=== PATIENT | female | born 2005 | race Caucasian/White ===

== ENCOUNTER 2023-11-15 01:48 | Inpatient (IN) ==
--- OUTSIDE RECORDS SUMMARY | 2023-11-15 02:10 | External Medical Summary | Summary of Care ---
Author Name Unknown Organization [facility] Address [address] [facility] [place] [address] Phone [phone] Care Team Providers Care Membership Sales Advisor Name Role Phone Stanley Lee MD Primary Care Prov ider Reason for Visit * Reason Onset Date Comments Medication Refill 11/13/2023 Sertraline Encounter Details Date Type Department Care Team (Late st Contact Info) Description 11/13/2023 Telephone [facility] [address] [place] [address] Stanley Lee MD [address] [place] [id number] Medication Refill (Sertraline ) Allergies No known active allergiesdocumented as of this encounter (statuses as of 11/13/2023) Medications Medication Sig Dispensed Refills Start Date End Date Status Ventolin HFA 108 (90 Base) MCG/ACT Inhalation Aerosol SolutionIndicatio ns:DILL (dyspnea on exertion) Inhale 2 Puffs by mouth 4 times a day as needed for Shortness of Breath or Other (chest discomfort/tigh tness). 18 g 5 01/03/2023 Active Plus 27-1 MG Oral TabletIndications :Attempting to conceive Take 1 Tablet by mouth daily. 90 Tablet 3 02/27/2023 Active Ondansetron HCl 4 MG Oral Tablet (Zofran)Indicatio ns:Nausea Take 1 Tablet by mouth every 8 hours as needed for Nausea or Vomiting. 20 Tablet 1 07/19/2023 Active Pantoprazole Sodium 20 MG Oral Tablet Delayed Release (Protonix) Take 1 Tablet by mouth in the morning. 90 Tablet 0 10/19/2023 Active Sertraline HCl 100 MG Oral Tablet (Zoloft) Take 1 Tablet by mouth in the morning. 90 Tablet 1 11/13/2023 Active Sertraline HCl 100 MG Oral Tablet (Zoloft) Take 1 Tablet by mouth in the morning. 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 without prior episode 03/18/2018 Acne vulgaris 04/20/2015 Estimated Date of Delivery Comme nts Yes 12/06/2023 documented as of this encounter (statuses as of 11/13/2023) Resolved Problems Problem Noted Date Diagnosed Date Resolved Date IUD check up 12/18/2019 12/13/2022 Missed 12/05/2019 12/18/2019 Cardiac dysrhythmia, unspecified 12/30/2009 03/18/2018 documented as of this encounter (statuses as of 11/13/2023) Immunizations Name Administration Dates Next Due DT - Diptheria/Tetanus (PEDS) 09/03/2008 ,02/23/2005,03/07/2004,12/24,2003 HIB PRP-OMP, 3 dose (Pedvax) 09/03/2008, 09/01/2004,2003,10/14 HPV Vaccine, 9-Valent 08/02/2020,02/04/2020,07/10 Hepatitis B, 0-19 yrs 09/01/2004,2003,10/2003 IPV - Polio Virus Vaccine (Inact) 2008,11/23/2004,2003,10/14 MMR - Measles/Mumps/Rubella Vaccine 09/03/2008,0 09/01/2004 Meningococcal Conjugate Vacc ine (Menactra/Menveo) 02/28/2017 Meningococcal MCV4O Conjugat e Vaccine (Menveo) 02/04/2020 Pneumococcal Conjugate Vacc, 13 Valent (Prevnar) 09/01/2004,03/07/2004,2003,10/08 TDAP (age 10 and older)(Boostrix) 06/23/2015, Varicella Vaccine (Chicken Pox) 03/22/2009,09/01 documented as of this encounter Social History Tobacco Use Types Packs/Day Years Used Date Smoking Tobacco: Never Smokeless Tobacco: Never Alcohol Use Standard Drinks/Week Comments No 0 (1 standard drink = 0.6 oz pur e alcohol) PHQ-2 Answer Date Recorded PHQ Adult Total Score 2 01/31/2023 Hunger Vital Sign Answer Date Recorded Within the past 12 months, y ou worried that your food would run out before you got the money to buy more. Never true 12/14/19 23 Within the past 12 months, t he food you bought just didn't last and you didn't have money to get more. Never true 12/13/2022 Estimated Date of Delivery Comme nts Yes 12/06/2023 Sex and Gender Information Value Date Recorded Sex Assigned at Female 10/30/2021 12:52 PM EDT Gender Identity Female 10/30/2021 12:52 PM EDT Sexual Orientation Straight 10/30/2021 12 :52 PM EDT Job Start Date Occupation Industry Not on file Not on file Not on file documented as of this encounter Miscellaneous Notes * Telephone Encounter - Janae Vidal LPN - 11/13/2023 1:06 PM EDT Fax received from [facility] pharmacy [place] requesting a 90 day supply of Sertraline 100 mg 1QDAM. Last appt: 10/19/2023 (in office), Visit date not found (telemedicine) Next appt: 11/22/2023 documented in this encounter Plan of Treatment Upcoming Encounters Date Type Department Care Team (Late st Contact Info) Description 11/22/2023 12:00 [place] [address] Stanley Lee MD [address] [place] [address] 04/22/2024 9:00 AM EDT Office Visit [facility] [place] [place] [address] [place] [address] Michelle Vazquez PA-C [address] [place] [address] Health Maintenance Due Date Last Done Comments Hepatitis C Screening 2021 Yearly Wellness Visit 01/18/2023 01/18/2022, 020 COVID-19 Vaccine (2022-2 4 season) 2023 Gonorrhea / Chlamydia Screen 08/04/2023, 02/15/2022, 03/07/2021, Additional history exists Influenza Vaccine (FLU shot) (Season Ended) 2024 DTaP,Tdap,and Td Vaccines (7 - Td or Tdap) 06/23/2025 06/23/2015, 03/22/2009, 09/03/2008, Additional history exists Hepatitis B Completed 09/01/2004, 02/2004, 2003 Pneumococcal Vaccine: Pediat rics (0 to 5 Years) and At-Risk Patients (6 to 64 Years) Completed 09/01/2004, 03/07/2004, 2003, Additional history exists MENINGOCOCCAL (MENACTRA/MENVEO) Completed , 02/28/2017 GARDASIL-HPV IMMUNIZATION SERIES Completed 08/02/2020, 02/04/2020, 07/31/2019 documented as of this encounter Medical Devices Implanted Type Area Certified Personal Finance Counselor Device Identifier Shelf Expiration Date Model / Serial / Lot Kyleena 19.5 Mg Implanted:Qty: 1 on 12/10/2019 by Tevin Parker MD at OR [facility] N/A: Vagina 09/05/2021 [facility] [id number] documented as of this encounter Advance Directives Latest Code Status on File Code Status Date Activated Date Inactivated Comments Full Code 12/10/2019 4:17 PM 12/10/2019 9:18 PM This or rosa m reflects the patients wishes and were consensually agreed upon. Care Teams Membership Sales Advisor Relationship Specialty Start Date End Date Stanley Lee MD [address] [place] [address] [phone] PCP - General Family Medicine 05/30/21 documented as of this encounter
[2023-11-15] MEDS ORDERED: OXYTOCIN 30 UNITS/NSS 30 UNITS/500 ML BAG IV PRN ×2 (02:47→09:34)
[2023-11-15] MEDS ORDERED: LIDOCAINE 1% LOCAL 20 ML VIAL INFIL PRN (02:47)
[2023-11-15] MEDS ORDERED: ALBUTEROL HFA 8 GM INHALER INH PRN (02:50)
[2023-11-15] MEDS ORDERED: ACETAMINOPHEN 500 MG TAB PO PRN (03:09)
--- NOTE | 2023-11-15 03:10 | History & Physical Report ---
Date of Service November 15, 2023 Assessment & Plan (1) Supervision of normal intrauterine in primigravida: Plan: IUP at 37 weeks with documented SPROM and now spontaneous on set of contractions will check Preeclampsia labs-tylenol for her headache PRN. Headache may also be because of anemia for which she has received one iron infusion and was due for another soon epidural when requested anticipate vaginal Admission and Anticipated Discharge Date Admission Date: November 15, 2023 History of Present Illness Primary Care Provider: Stanley Chou MD Patient is a 18 yo female EDC 12/06/23 who presents at 37 weeks with SPROM for clear fluid at midnight. now frederick spontaneously. GBS-negative complicated by gestational proteinuria, iron deficiency anemia, POTS syndrome and a headache over her right eye for the last several weeks. no visual changes and Tylenol helps the headache. Her BP has been elevated the last 2 visits in the office but became normotensive after sitting for 5 minutes. Allergies Allergy/AdvReac Type Severity Reaction Status Date / Time No Known Allergies Allergy Verified 11/15/23 02:22 Home Medications Medication Instructions Recorded Confirmed Type albuterol sulfate 90 mcg/actuation 2 puff inhalation QID PRN 04/14/23 11/15/23 History aerosol inhaler SOB,CHEST DISCMFORT/TIGHTNESS vitamin with calcium 1 tab PO DAILY 04/14/23 11/15/23 History no.72-iron 27 mg-folic acid 1 mg tablet pantoprazole 20 mg tablet,delayed 20 mg PO DAILY 10/27/23 11/15/23 History release (Protonix) sertraline 50 mg tablet 100 mg PO QAM 10/27/23 11/15/23 History iron sucrose 100 mg iron/5 mL 300 mg (15 mL) IV DAILY 1 dose 11/05/23 11/15/23 Rx intravenous solution (Venofer) Patient History Medical History Seasonal allergies Acid reflux Anxiety POTS (postural orthostatic tachycardia syndrome) Varicella vaccination Surgical History S/P wisdom tooth extraction S/P dilatation and curettage Family History Grandmother (Maternal) Breast cancer Mother Anemia Asthma Sister Anemia Asthma Ovarian cyst Father Diabetes Gallbladder disease Hypertension Grandmother (Paternal) Heart murmur Denies family history of Ovarian cancer Colorectal cancer Social History Smoking Status: Never smoker Do You Dip or Chew Tobacco: No; Hx Alcohol Use: No Hx Substance Use: No Preferred Language: Marshallese Communication Ability: Effective Rehabilitation Technician Required: No Beliefs That Will Affect Care: None marital status: Single marital status details: Hailey Glez (20) [phone] Current Living Situation: Parent Current Living Situation Comment: momWilton Dyer current occupational status: employed current occupation: [employer] Other Information That Helps Us Care for You: No Assistive Devices: None Review of Systems All systems reviewed & are unremarkable except as noted in HPI & below Physical Exam Constitutional: WD/WN, vitals as above Psychiatric: A+Ox3, euthymic affect Genitourinary: OB Exam Abdomen: + vertex, + estimated weight (6-7 pounds) and + regular contractions Manual OB Exam: + cervical dilation 2 cm, + cervical effacement 100%, + station -2 and + amniotic fluid (grossly ruptured) clear OB Exam Monitor Tracing: + external FHT monitor used, + external uterine monitor used, + category I and + normal FHT variability Results & Data Vital Signs (Past 12 Hours) Vital Signs Temp Pulse Resp BP 11/15/23 02:20 18 11/15/23 02:20 98.6 F 18 11/15/23 02:12 112 H 145/89 H Code Status & VTE Plan VTE Prophylaxis Plan VTE Prophylaxis will be ordered: No Coding Level of Care Code None Diagnoses Encounter for supervision of normal first in third trimester Z34.03 Trimester: third trimester (1) Supervision of normal intrauterine in primigravida Trimester: third trimester Qualified Code(s): Z34.03 - Encounter for super vision of normal first , third trimester
[2023-11-15 03:44] LABS: Hematocrit (blood only) 28.4 % (37.0-47.0); Hemoglobin 8.8 g/dl (12.0-16.0); Mean Corpuscular Hemoglobin 23.3 pg (25.0-34.0); Mean Corpuscular Volume 75.3 fL (80.0-100.0); Nucleated RBC # (auto) 0.05 K/uL (0.00-0.12); Nucleated RBC % (auto) 0.5 %; Platelet Count 178 K/uL (130-400); RDW Coefficient of Variation 17.4 % (11.5-14.5); RDW Standard Deviation 39.9 fL (36.4-46.3); Red Blood Count 3.77 M/uL (4.20-5.40); White Blood Count 9.16 K/ul (4.8-10.8)
[2023-11-15 03:53] LABS: Albumin Globulin Ratio 1.2 (0.9-2); Albumin Level 3.5 gm/dl (3.4-5.0); BUN Creatinine Ratio 14.7 (10-20); Bilirubin,Total 0.6 mg/dl (0.2-1.0); Creatinine Clr Calc Pharmacy 144.7 ml/min; Est GFR (African American) 145.9 ml/min; Est GFR (Non-African American) 125.9 ml/min; Globulin 2.9 gm/dl (2.5-4.0); Potassium 4.2 mmol/L (3.5-5.1); Total Protein 6.4 gm/dl (6.0-8.3)
[2023-11-15] MEDS: LACTATED RINGER'S 1,000 ML IV PRN (04:39)
[2023-11-15] MEDS ORDERED: SODIUM CHLORIDE 0.9% 250 ML IV PRN (04:52)
[2023-11-15] MEDS ORDERED: BUPIVACAINE 0.25% PF 30 ML VIAL EPI PRN (04:53)
[2023-11-15] MEDS ORDERED: fentANYL 2 MCG/ML BUPIVacaine 0.125%-NSS 100ML BAG EPI PRN (04:53)
[2023-11-15] MEDS ORDERED: LIDOCAINE 2%/EPINEPHRINE 1:200,000 20 ML PF EPI STA (04:53)
[2023-11-15] MEDS ORDERED: NALBUPHINE HCL 5 MG in SYRINGE 0 ML IV PRN (04:53)
[2023-11-15] MEDS ORDERED: fentaNYL citrate PF 100 MCG/2 ML VIAL EPI PRN (04:53)
[2023-11-15] MEDS ORDERED: SODIUM CHLORIDE 0.9% PF INJ 10 ML VIAL EPI PRN (04:53)
[2023-11-15] MEDS ORDERED: diphenhydrAMINE 50 MG/ML VIAL IV PRN (04:53)
[2023-11-15] MEDS ORDERED: ROPIVACAINE 0.5% PF 5 MG/ML 20 ML VIAL EPI PRN (04:53)
[2023-11-15] MEDS ORDERED: ePHEDrine sulfate 50 MG/ML AMP IV PRN (04:53)
[2023-11-15] MEDS ORDERED: BUPIVACAINE 0.25% PF 30 ML VIAL EPI STA (04:53)
[2023-11-15] MEDS ORDERED: ONDANSETRON INJ 2 MG/ML 2 ML VIAL IV PRN (04:53)
[2023-11-15] MEDS ORDERED: NALOXONE HCL 1 MG in SODIUM CHLORIDE 0.9% 1,000 ML IV PRN (04:53)
[2023-11-15] MEDS ORDERED: SODIUM CHLORIDE 0.9% PF INJ 10 ML VIAL EPI STA (04:53)
[2023-11-15] MEDS ORDERED: fentaNYL citrate PF 100 MCG/2 ML VIAL EPI STA (04:53)
[2023-11-15] MEDS ORDERED: NALOXONE HCL 0.4 MG/1 ML VIAL/CARP IV PRN (04:53)
[2023-11-15] MEDS ORDERED: LIDOCAINE 2% MPF LOCAL 5 ML VIAL EPI PRN (04:53)
--- NOTE | 2023-11-15 05:18 | Anesthesiology Consultation ---
Date of Service November 15, 2023 Assessment & Plan (1) Encounter for pre-operative examination: Chart Review Chart Review: Patient NOT seen in Pre Admission Testing and Acceptable Risk for Labor Epidural Consults Requested none History Height/Weight Height: 5 ft 4 in Weight: 91.626 kg Allergies Allergy/AdvReac Type Severity Reaction Status Date / Time No Known Allergies Allergy Verified 11/15/23 02:22 Medications Home Medications Medication Instructions Recorded Confirmed Last Taken albuterol sulfate 90 mcg/actuation 2 puff inhalation QID PRN 04/14/23 11/15/23 Unknown aerosol inhaler SOB,CHEST DISCMFORT/TIGHTNESS vitamin with calcium 1 tab PO DAILY 04/14/23 11/15/23 11/14/23 no.72-iron 27 mg-folic acid 1 mg tablet pantoprazole 20 mg tablet,delayed 20 mg PO DAILY 10/27/23 11/15/23 11/14/23 20:00 release (Protonix) sertraline 50 mg tablet 100 mg PO QAM 10/27/23 11/15/23 11/14/23 20:00 iron sucrose 100 mg iron/5 mL 300 mg (15 mL) IV DAILY 1 dose 11/05/23 11/15/23 11/09/23 intravenous solution (Venofer) Active Medications Generic Name Dose Route Start Last Admin Trade Name Freq PRN Reason Stop Dose Admin Lactated Ringer's 1,000 mls @ 125 mls/hr 11/15/23 02:47 11/15/23 04:39 Lr IV 11/17/23 02:46 999 mls/hr .Q8H PRN Administration L&D Protocol Protocol Past Medical History Medical History (Updated 11/15/23 @ 05:18 by Jackson Casas MD) Encounter for pre-operative examination Seasonal allergies Acid reflux Anxiety POTS (postural orthostatic tachycardia syndrome) Varicella vaccination Exercise / Class Metabolic Activity II 4-5 Yardwork/Stairs/Walk up hill Past Family History Family History Grandmother (Maternal) Breast cancer Mother Anemia Asthma Sister Anemia Asthma Ovarian cyst Father Diabetes Gallbladder disease Hypertension Grandmother (Paternal) Heart murmur Denies family history of Ovarian cancer Colorectal cancer Past Surgical History Surgical History S/P wisdom tooth extraction S/P dilatation and curettage Past Anesthesia History No Hx of Anesthesia Complications and No Family Hx of Anesthesia Complications History of PONV No Hx of PONV and No Hx of Motion Sickness Social History Smoking Status: Never smoker Do You Dip or Chew Tobacco: No Hx Alcohol Use: No Hx Substance Use: No substance use type: does not use Physical Exam Vital Signs Last Vital Signs Temp 36.7 C 11/15/23 04:30 Pulse 101 H 11/15/23 05:14 Resp 18 11/15/23 04:30 BP 133/86 11/15/23 05:14 Pulse Ox 99 11/15/23 05:12 Testing Laboratory Results 11/15/23 03:12 11/15/23 03:12
[2023-11-15] MEDS: BUPIVACAINE 0.25% PF 30 ML VIAL ONE (05:19)
[2023-11-15] MEDS: fentaNYL citrate PF 100 MCG/2 ML VIAL ONE (05:19)
[2023-11-15] MEDS: LIDOCAINE 2%/EPINEPHRINE 1:200,000 20 ML PF ONE (05:19)
[2023-11-15] MEDS: fentANYL 2 MCG/ML BUPIVacaine 0.125%-NSS 100ML BAG ONE (05:20)
[2023-11-15] MEDS: ePHEDrine sulfate 50 MG/ML AMP ONE (05:52)
[2023-11-15] MEDS: SODIUM CHLORIDE 0.9% PF INJ 10 ML VIAL ONE (05:52)
[2023-11-15] MEDS: OXYTOCIN 30 UNITS/NSS 30 UNITS/500 ML BAG IV PRN (09:09)
[2023-11-15] MEDS ORDERED: HYDROCORTISONE ACETATE 25 MG SUPP PR PRN (09:34)
[2023-11-15] MEDS ORDERED: bisacodyL 10 MG SUPP PR PRN (09:34)
[2023-11-15] MEDS ORDERED: BENZOCAINE 20% SPRY 85 APPLN/85 GM CAN EXT PRN (09:34)
[2023-11-15] MEDS ORDERED: Nursing to Pharmacy Communication SCH (10:00)
[2023-11-15] MEDS: PANTOprazole 40 MG TAB PO SCH ×2 (10:25→20:33)
[2023-11-15] MEDS: SERTRALINE HCL 100 MG TABLET PO SCH ×2 (10:25→20:33)
[2023-11-15] MEDS: DIPHTHER/TETAN/PERTUS Vaccine (Tdap, Adol/Adult) 0.5mL IM ONE (10:26)
--- NOTE | 2023-11-15 11:08 | Anesthesia Procedure Note ---
Date of Service November 15, 2023 Anesthesia Post Epidural Note Vital Signs Vital Signs: Temp Pulse Resp BP Pulse Ox O2 Del Method 36.8 C 85 18 120/73 96 Room Air 11/15/23 07:02 11/15/23 11:03 11/15/23 10:15 11/15/23 11:03 11/15/23 11:02 11/15/23 09:45 Pain Intensity Bilateral Lower Abdomen: Pain Intensity: 5 Notes Mental Status: alert / awake / arousable and participated in evaluation Nausea / Vomiting: adequately controlled Pain: adequately controlled Airway Patency, RR, SpO2: stable & adequate BP & HR: stable & adequate Hydration State: stable & adequate Neuraxial Anesthesia: was administered and sensory block is resolving Anesthetic Complications: no major complications apparent Epidural: Removed without complications and With tip intact
--- NOTE | 2023-11-15 13:57 | Delivery Summary ---
Vaginal Delivery Summary Date of Service November 15, 2023 Vaginal Delivery Summary Progressed to 10 cm dilated 100% effaced and +3 station pushed over intact perineum with epidural anesthesia and delivered a viable with weight and Apgars pending. Have delivered without difficulty followed by shoulders and body. was noted be vigorous upon delivery and a 1 minute delayed cord clamping was initiated. Cord was double clamped and cut. Cord blood obtained and attention was turned to deliver the placenta was delivered intact three- vessel cord gentle cord traction. There is noted to be no lacerations on inspection of the perineum, vagina and cervix. Sponge and instrument counts were correct at the completion of the case. Both mother and baby stable in the immediate post delivery period. No complications noted and blood loss per QBL. [facility] Vaginal Delivery Charge Delivery Type Details:
[2023-11-15] MEDS: IBUPROFEN 600 MG TAB PO PRN (16:23)
[2023-11-15] MEDS: ACETAMINOPHEN 325 MG TAB PO PRN (16:24)
[2023-11-15] MEDS: DOCUSATE SODIUM 100 MG CAP PO SCH (20:33)
[2023-11-16 04:03] VITALS: TEMP 98.1
[2023-11-16 06:15] LABS: Hematocrit (blood only) 28.6 % (37.0-47.0); Hemoglobin 8.8 g/dl (12.0-16.0); Mean Corpuscular Hemoglobin 23.7 pg (25.0-34.0); Mean Corpuscular Hgb Conc 30.8 g/dL (32.0-36.0); Mean Corpuscular Volume 76.9 fL (80.0-100.0); Mean Platelet Volume 12.4 fL (9.4-12.4); Nucleated RBC # (auto) 0.03 K/uL (0.00-0.12); Nucleated RBC % (auto) 0.3 %; Platelet Count 141 K/uL (130-400); RDW Coefficient of Variation 18.5 % (11.5-14.5); RDW Standard Deviation 41.1 fL (36.4-46.3); Red Blood Count 3.72 M/uL (4.20-5.40); White Blood Count 9.41 K/ul (4.8-10.8)
--- NOTE | 2023-11-16 06:43 | Obstetrical Progress Note ---
Date of Service <Aniyah Streeter DO - Last Filed: 11/16/23 06:44> November 16, 2023 Assessment & Plan <Aniyah Streeter DO - Last Filed: 11/16/23 06:44> (1) care following vaginal delivery: Plan Feels well today. Eating well, voiding well, ambulating well. Pain well controlled with ibuprofen +/- tylenol. Routine care; OOB, ambulation, continue regular diet. Anticipate discharge 24-48 hours after , today or tomorrow. After discharge will have 6 week follow-up with Dr. To. <Faustino To MD - Last Filed: 11/16/23 07:38> (1) care following vaginal delivery: Subjective <Aniyah Streeter DO - Last Filed: 11/16/23 06:44> Pt is a 18 y/o female who is PPD#1 following . Today, pt states she is overall feeling well. No questions or complaints at this point in time. She states that cramps are mild and bleeding has improved. Does notice cramps are worse with . is going okay. Tolerating intake, ambulating, and voiding without issue. Constitutional: no fever, no chills or no sweats Respiratory: no dyspnea Cardiovascular: no chest pain or no palpitations Breast: no breast pain Genitourinary (female): no dysuria Neurologic: no headache(s) no changes in vision, no headaches Physical Exam <Aniyah Streeter DO - Last Filed: 11/16/23 06:44> General: Alert, oriented. No acute distress. Cardiac: Regular rate and rhythm, no murmurs, rubs, or gallops. Respiratory: Clear to auscultation bilaterally, no wheezes/rales/rhonchi. No increased work of breathing. Symmetrical chest rise. No respiratory distress. Abdomen: Soft, nontender, nondistended. Bowel sounds present. Uterus: Uterine fundus firm, palpable just below the umbilicus. Lower extremities: No lower extremity edema or swelling. No deep calf pain. Results & Data <Aniyah Streeter DO - Last Filed: 11/16/23 06:44> Vital Signs (Past 12 Hours) Vital Signs Temp Pulse Resp BP Pulse Ox O2 Del Method 11/16/23 04:03 36.7 C 73 18 105/69 98 Room Air 11/15/23 23:09 36.9 C 83 18 131/85 97 Room Air 11/15/23 19:23 36.8 C 83 18 135/80 Supervising Physician <Faustino To MD - Last Filed: 11/16/23 07:38> Co-Signing Physician Notes Patient seen with resident and agree with the above findings and plan. Stable for discharge Resident Activity Tracking <Aniyah Streeter DO - Last Filed: 11/16/23 06:44> Resident Involvement: Resident Care Provided Care Provided: OB Delivery
[2023-11-16] MEDS: PRENATAL VITAMIN 1 TAB PO SCH (08:42)
[2023-11-16] MEDS: FERROUS SULFATE 325 MG TAB PO SCH (08:43)
[2023-11-16 09:16] VITALS: BP 112/77; PULSE 81; RESP 16; O2SAT 96
[2023-11-16] MEDS: IRON SUCROSE 100 MG in 0.9 % SODIUM CHLORIDE 100 ML IV ONE (11:41)
[2023-11-16] MEDS ORDERED: bisacodyL 5 MG TABEC PO SCH (20:00)
== END 2023-11-16 17:58 | disposition home or self-care (01) | DRG 807 ==
LOC: OPB 01:48 → 4S1 01:52 → 4E2 12:13
DX: O99.02 Anemia complicating childbirth; Z37.0 Single live birth; Z3A.37 37 weeks gestation of pregnancy; D50.9 Iron deficiency anemia, unspecified; O42.02 Full-term premature rupture of membranes, onset of labor within 24 hours of rupture; O12.14 Gestational proteinuria, complicating childbirth